=== PATIENT | male | born 1995 | race Caucasian/White ===

== ENCOUNTER 2018-11-03 12:01 | Emergency (ER) | payer OTHER ==
[~2018-11-03] VITALS: Ht 177.8 cm; Wt 104.5 kg
[2018-11-03 12:03] VITALS: BP 119/96
[2018-11-03] MEDS ORDERED: HYDROCODONE/ACETAMINOPHEN 5-325 MG TABLET PO ONE (14:15)
[2018-11-03] MEDS ORDERED: PERTUSS(ACELL),DIPH,TET VAC/PF 0.5 ML VIAL IM ONE (14:15)
[2018-11-03] MEDS ORDERED: LIDOCAINE 2% 30 ML JELLY TP ONE (14:15)
[2018-11-03] MEDS ORDERED: BACITRACIN 0.9 GM PACKET OINTMENT TP ONE (15:45)
== END 2018-11-03 16:56 | disposition home or self-care (01) ==
LOC: EMS 12:02
DX: S30.810A Abrasion of lower back and pelvis, initial encounter (principal); S40.812A Abrasion of left upper arm, initial encounter; V28.4XXA Motorcycle driver injured in noncollision transport accident in traffic accident, initial encounter; Y93.89 Activity, other specified; Y92.89 Other specified places as the place of occurrence of the external cause; Y99.8 Other external cause status
CPT/HCPCS: 90471; 90715

== ENCOUNTER 2023-08-26 11:31 | Emergency (ER) | payer OTHER ==
[~2023-08-26] VITALS: Ht 180.3 cm; Wt 83.0 kg
[2023-08-26 11:45] VITALS: TEMP 98.4
[2023-08-26] MEDS: IBUPROFEN 600 MG TABLET PO ONE (12:38)
[2023-08-26 14:00] VITALS: BP 117/77; PULSE 94; RESP 18
[2023-08-26] MEDS ORDERED: IBUP-1492 PO (14:03)
== END 2023-08-26 14:37 | disposition home or self-care (01) ==
LOC: EMS 11:31
DX: L84 Corns and callosities (principal); F17.210 Nicotine dependence, cigarettes, uncomplicated; F12.90 Cannabis use, unspecified, uncomplicated; Z98.890 Other specified postprocedural states
CPT/HCPCS: 99283